=== PATIENT | female | born 2000 ===

== ENCOUNTER 2022-12-25 09:06 | Emergency (ER) | payer OTHER ==
[~2022-12-25] VITALS: Ht 167.6 cm; Wt 71.7 kg
[2022-12-25] MEDS ORDERED: PERCOCET 5-3251 EACH PO (11:01)
== END 2022-12-25 14:21 | disposition home or self-care (01) ==
LOC: ER 09:06
DX: S80.01XA Contusion of right knee, initial encounter (principal); X58.XXXA Exposure to other specified factors, initial encounter; Y93.89 Activity, other specified; Y92.832 Beach as the place of occurrence of the external cause; Y99.9 Unspecified external cause status